=== PATIENT | female | born 1945 | race Caucasian/White ===

== ENCOUNTER 2020-09-09 06:57 | Outpatient (CLI) | payer MEDICARE | END 2020-09-09 06:58 | disposition home or self-care (01) | LOC: NM 06:57 | PROVIDERS: ATTEND Otolaryngology Plastic Surgery within the Head & Neck | DX: E21.3 Hyperparathyroidism, unspecified (principal) | CPT/HCPCS: 78072; A9500 ==

== ENCOUNTER 2020-10-16 09:35 | Day surgery (SDC) | payer MEDICARE ==
[2020-10-15 16:17] VITALS: BMI 39.0
[2020-10-16] MEDS ORDERED: Bacitracin Zinc Ointment 30 gm TUBE ONE (12:37)
[2020-10-16] MEDS ORDERED: Lidocaine 1% w/Epinephrine 1:100K 20 ML VIAL ONE (12:37)
[2020-10-16] MEDS ORDERED: Fentanyl 100 MCG/2 ML VIAL ONE (12:49)
[2020-10-16] MEDS ORDERED: Famotidine/PF 20 mg/2ml Vial ONE (12:50)
[2020-10-16 13:12] LABS: Hemoglobin 13.4 g/dL (12.0-16.0)
[2020-10-16] MEDS ORDERED: Metoclopramide HCl 10 MG/2 ML VIAL ONE (13:31)
[2020-10-16] MEDS ORDERED: Ondansetron PF 4 MG/2 ML Vial ONE (13:31)
[2020-10-16] MEDS ORDERED: PHENYLEPHRINE-NS 100 MCG/ML 10 ML SYRINGE ONE (13:31)
[2020-10-16] MEDS ORDERED: Lidocaine 1% PF 5 ML VIAL ONE (13:31)
[2020-10-16] MEDS ORDERED: Succinylcholine 200 MG/10 ml SYRINGE FS ONE (13:31)
[2020-10-16] MEDS ORDERED: PROPOFOL 200 MG/20 ML VIAL ONE (13:31)
[2020-10-16 13:54] LABS: Anion Gap 14 mmol/L (10-20); BUN (Urea Nitrogen) 17 mg/dL (9.8-20.1); Calc. Creatinine Clearance 84 mL/min (70-130); Calcium 12.4 mg/dL (7.8-10.44); Carbon Dioxide 21 mmol/L (23-31); Chloride 108 mmol/L (98-107); Glucose 89 mg/dL (83-110); Potassium 5.4 mmol/L (3.5-5.1); Sodium 138 mmol/L (136-145)
[2020-10-16] MEDS ORDERED: HYDROcodone/Acetaminophen 5/325 mg Tablet ONE (16:03)
== END 2020-10-16 16:48 | disposition home or self-care (01) ==
LOC: SDC 09:35
PROVIDERS: ATTEND Otolaryngology Plastic Surgery within the Head & Neck
PROC: 0GTR0ZZ Resection of Parathyroid Gland, Open Approach (ICD-10-PCS; principal; 2020-10-16)
DX: D35.1 Benign neoplasm of parathyroid gland (principal); E21.3 Hyperparathyroidism, unspecified; E78.00 Pure hypercholesterolemia, unspecified; I10 Essential (primary) hypertension; K21.9 Gastro-esophageal reflux disease without esophagitis; E03.9 Hypothyroidism, unspecified; Z79.82 Long term (current) use of aspirin; Z79.84 Long term (current) use of oral hypoglycemic drugs; Z79.899 Other long term (current) drug therapy; Z95.5 Presence of coronary angioplasty implant and graft
CPT/HCPCS: 80048; 85014; 85018; 88305; 88331; J2405; J2704; J2765; J3010; S0028